=== PATIENT | female | born 1995 ===

== ENCOUNTER 2022-09-04 09:38 | Outpatient (CLI) | payer OTHER | END 2022-09-04 10:35 | disposition home or self-care (01) | LOC: PRENATAL 09:38 | PROVIDERS: ATTEND Obstetrics & Gynecology Maternal & Fetal Medicine | DX: O36.80X0 Pregnancy with inconclusive fetal viability, not applicable or unspecified (principal); Z36.0 Encounter for antenatal screening for chromosomal anomalies; Z14.8 Genetic carrier of other disease; O34.219 Maternal care for unspecified type scar from previous cesarean delivery; O09.219 Supervision of pregnancy with history of pre-term labor, unspecified trimester; Z3A.14 14 weeks gestation of pregnancy ==

== ENCOUNTER 2022-10-23 13:35 | Outpatient (CLI) | payer OTHER | END 2022-10-23 15:16 | disposition home or self-care (01) | LOC: PRENATAL 13:35 | PROVIDERS: ATTEND Obstetrics & Gynecology Maternal & Fetal Medicine | DX: O35.9XX0 Maternal care for (suspected) fetal abnormality and damage, unspecified, not applicable or unspecified (principal); O35.3XX0 Maternal care for (suspected) damage to fetus from viral disease in mother, not applicable or unspecified; O34.219 Maternal care for unspecified type scar from previous cesarean delivery; Z3A.21 21 weeks gestation of pregnancy ==

== ENCOUNTER 2022-12-12 19:06 | Inpatient (IN) | payer OTHER ==
[~2022-12-12] VITALS: Ht 157.5 cm; Wt 85.7 kg
[2022-12-15] MEDS ORDERED: PRENATAL + DHA1 EAC1 (08:45)
== END 2022-12-16 10:04 | disposition home or self-care (01) | DRG 833 ==
LOC: OBS/DEL 19:06 → LDR 12-13 09:32 → OB/GYN 12-14 10:53
PROVIDERS: ADMIT Obstetrics & Gynecology; ATTEND Obstetrics & Gynecology
PROC: BY4FZZZ Ultrasonography of Third Trimester, Single Fetus (ICD-10-PCS; 2022-12-12)
PROC: BU4CZZZ Ultrasonography of Uterus and Ovaries (ICD-10-PCS; 2022-12-12)
PROC: 4A1HXCZ Monitoring of Products of Conception, Cardiac Rate, External Approach (ICD-10-PCS; principal; 2022-12-13)
PROC: B030ZZZ Magnetic Resonance Imaging (MRI) of Brain (ICD-10-PCS; 2022-12-13)
PROC: BY4FZZZ Ultrasonography of Third Trimester, Single Fetus (ICD-10-PCS; 2022-12-15)
DX: O40.3XX0 Polyhydramnios, third trimester, not applicable or unspecified (principal); O26.843 Uterine size-date discrepancy, third trimester; O26.893 Other specified pregnancy related conditions, third trimester; E86.0 Dehydration; Z3A.28 28 weeks gestation of pregnancy; Z20.822 Contact with and (suspected) exposure to COVID-19; O21.8 Other vomiting complicating pregnancy
CPT/HCPCS: 70544

== ENCOUNTER 2023-01-15 10:11 | Outpatient (CLI) | payer OTHER ==
[~2023-01-15 10:11] MED LIST: PRENATAL + DHA1 EAC1
== END 2023-01-15 11:55 | disposition home or self-care (01) ==
LOC: PRENATAL 10:11
PROVIDERS: ATTEND Obstetrics & Gynecology Maternal & Fetal Medicine
DX: O26.849 Uterine size-date discrepancy, unspecified trimester (principal); O36.8199 Decreased fetal movements, unspecified trimester, other fetus; O34.219 Maternal care for unspecified type scar from previous cesarean delivery; Z3A.33 33 weeks gestation of pregnancy

== ENCOUNTER 2023-02-13 14:04 | Inpatient (IN) | payer OTHER ==
[~2023-02-13] VITALS: Ht 157.5 cm; Wt 2.7 kg
== END 2023-02-20 14:16 | disposition home or self-care (01) | DRG 785 ==
LOC: OB/GYN 02-18 07:00 → LDR 02-18 09:21 → OB/GYN 02-18 13:58 → O/R 02-18 14:39 → OB/GYN 02-18 14:40
PROVIDERS: ADMIT Obstetrics & Gynecology; ATTEND Obstetrics & Gynecology
PROC: 0UB70ZZ Excision of Bilateral Fallopian Tubes, Open Approach (ICD-10-PCS; 2023-02-18)
PROC: 4A1HXCZ Monitoring of Products of Conception, Cardiac Rate, External Approach (ICD-10-PCS; 2023-02-18)
PROC: 10D00Z1 Extraction of Products of Conception, Low, Open Approach (ICD-10-PCS; principal; 2023-02-18 07:00)
DX: O34.211 Maternal care for low transverse scar from previous cesarean delivery (principal); Z30.2 Encounter for sterilization; Z37.0 Single live birth; Z20.822 Contact with and (suspected) exposure to COVID-19; Z3A.38 38 weeks gestation of pregnancy